=== PATIENT | male | born 1960 | race Caucasian/White ===

== ENCOUNTER 2024-01-17 07:05 | Day surgery (SDC) | payer BC ==
[~2024-01-17] VITALS: Ht 172.7 cm; Wt 102.8 kg
[~2024-01-17 07:05] MED LIST: EFFEXOR-XR150 MG PO; LORTAB 5/500 501 TAB PO; PRAVACHOL10 MG PO
[2024-01-17] MEDS ORDERED: 1/2 NS 1,000 ML IV SCH (07:45)
[2024-01-17] MEDS ORDERED: NS Flush 10 ML SYRINGE PRN ICA (07:45)
[2024-01-17 08:01] LABS: BASO # 0.1 K/mm3 (0.0-0.2); BASO % 0.9 % (0.0-2.0); EOS # 0.2 K/mm3 (0.0-0.7); EOS % 2.6 % (0.0-4.0); GRAN # 3.7 K/mm3 (1.4-6.5); GRAN % 62.2 % (42.2-75.2); HEMOGLOBIN 10.8 g/dl (13.5-18.0); LYMPH # 1.4 K/mm3 (1.2-3.4); LYMPH % 24.4 % (20.0-51.0); MEAN CELL VOLUME 88 fl (80.0-100.0); MEAN CORPUSCULAR HEMOGLOBIN 28 pg (27-31); MEAN CORPUSCULAR HGB CONC 32 g/dl (33.0-37.0); MEAN PLATELET VOLUME 10.4 fl (7.4-10.4); MONO # 0.5 K/mm3 (0.1-0.6); MONO % 8.9 % (1.7-9.3); PLATELET COUNT 144 K/mm3 (130-400); RED BLOOD COUNT 3.84 M/mm3 (4.20-5.60); REDCELL DISTRIBUTION WIDTH-CV 16.3 % (11.5-14.5)
[2024-01-17 08:07] LABS: HEMATOCRIT 33.8 % (42.0-52.0)
[2024-01-17 08:20] LABS: CALCIUM 9.3 mg/dL (8.4-10.2); CREATININE, serum 1.03 mg/dL (0.72-1.25); POTASSIUM 4.8 mEq/L (3.5-4.5)
[2024-01-17 08:22] LABS: INR 1.1 (0.8-3.0); PROTHROMBIN TIME 11.6 SECONDS (9.7-12.8)
[2024-01-17] MEDS ORDERED: COZAAR 25MG25 MG/TAB PO (08:31)
[2024-01-17] MEDS ORDERED: CRESTOR20 MG PO (08:32)
[2024-01-17] MEDS ORDERED: MAG-OX 400400 MG/TAB PO (08:34)
[2024-01-17] MEDS ORDERED: PEPCID 20MG TAB20 MG PO (08:34)
[2024-01-17] MEDS ORDERED: CLARITIN 1010 MG/TAB PO (08:35)
[2024-01-17] MEDS ORDERED: GLUCOPHAGE1000 MG PO (08:36)
[2024-01-17] MEDS ORDERED: METHOTREXATE50/2 IJ (08:38)
[2024-01-17] MEDS ORDERED: WELLBUTRIN XL300 M1 PO (08:39)
[2024-01-17] MEDS ORDERED: JANUVIA 100MG100 MG PO (08:40)
[2024-01-17] MEDS ORDERED: FOLIC ACID 11 MG/TA1 PO (08:41)
[2024-01-17] MEDS ORDERED: ASPIRIN 81M81 MG/TA2 PO (08:42)
[2024-01-17] MEDS ORDERED: MULTI VITAMINS1 TAB PO (08:42)
[2024-01-17 08:44] VITALS: BP 135/62; PULSE 66; TEMP 97.6
[2024-01-17] MEDS ORDERED: NS Flush 10 ML SYRINGE BID ICA SCH (09:00)
[2024-01-17] MEDS ORDERED: Lidocaine PF 2% (20 MG/ML) 5 ML VIAL ONE (09:02)
[2024-01-17 09:35] VITALS: BP 105/56; PULSE 62
[2024-01-17 09:45] VITALS: BP 107/86; PULSE 64
[2024-01-17 10:00] VITALS: BP 118/54; PULSE 60
[2024-01-17 10:15] VITALS: BP 133/61; PULSE 62
--- NOTE | 2024-01-17 10:48 | NUR ---
Discharge instructions given to pt.Pt verbalizes understanding.Pt escorted out via wheelchair by this nurse.
--- NOTE | 2024-01-17 11:00 | NUR ---
Discharge instructions given to pt.Pt verbalizes understanding.Pt escorted out via wheelchair by this nurse.
== END 2024-01-17 14:05 ==
LOC: COL.CAR 07:05
PROVIDERS: Internal Medicine Cardiovascular Disease
DX: I08.1 Rheumatic disorders of both mitral and tricuspid valves (principal)
CPT/HCPCS: J2704

== ENCOUNTER 2024-01-24 10:01 | Day surgery (SDC) | payer BC ==
[2024-01-24] VITALS (12 sets, daily range): BP systolic 121–143; BP diastolic 65–87; PULSE 62–74; TEMP 97.5
[~2024-01-24] VITALS: Ht 172.8 cm; Wt 101.8 kg
[~2024-01-24 10:01] MED LIST changes: +ASPIRIN 81M81 MG/TA2 PO; +CLARITIN 1010 MG/TAB PO; +COZAAR 25MG25 MG/TAB PO; +CRESTOR20 MG PO; +FOLIC ACID 11 MG/TA1 PO; +GLUCOPHAGE1000 MG PO; +JANUVIA 100MG100 MG PO; +MAG-OX 400400 MG/TAB PO; +METHOTREXATE50/2 IJ; +MULTI VITAMINS1 TAB PO; +PEPCID 20MG TAB20 MG PO; +WELLBUTRIN XL300 M1 PO
[2024-01-24] MEDS ORDERED: 1/2 NS 1,000 ML IV SCH (10:30)
[2024-01-24 10:48] LABS: HEMOGLOBIN 11.3 g/dl (13.5-18.0); MEAN CELL VOLUME 88 fl (80.0-100.0); MEAN CORPUSCULAR HEMOGLOBIN 28 pg (27-31); MEAN CORPUSCULAR HGB CONC 32 g/dl (33.0-37.0); MEAN PLATELET VOLUME 10.8 fl (7.4-10.4); PLATELET COUNT 173 K/mm3 (130-400); RED BLOOD COUNT 3.98 M/mm3 (4.20-5.60); REDCELL DISTRIBUTION WIDTH-CV 16.2 % (11.5-14.5)
[2024-01-24 10:51] LABS: HEMATOCRIT 35.1 % (42.0-52.0)
[2024-01-24 10:52] LABS: INR 1.1 (0.8-3.0); PROTHROMBIN TIME 11.5 SECONDS (9.7-12.8)
[2024-01-24 10:55] LABS: PARTIAL THROMBOPLASTIN TIME 31.7 SECONDS (26.0-37.0)
[2024-01-24 11:05] LABS: CALCIUM 9.1 mg/dL (8.4-10.2); POTASSIUM 4.8 mEq/L (3.5-4.5)
[2024-01-24] MEDS ORDERED: Verapamil 2.5 MG/ML 2 ML VIAL IA SCH (12:51)
[2024-01-24] MEDS ORDERED: Nitroglycerin 100 MCG/ML (Cath Lab) 10 ML VIAL IA SCH (12:53)
[2024-01-24] MEDS ORDERED: Heparin 1,000 UNITS/ML 10 ML Multi-Dose VIAL IV SCH (12:53)
--- NOTE | 2024-01-24 13:02 | NUR ---
See Merge report for procedural sedation/notes
[2024-01-24] MEDS ORDERED: Midazolam 2 MG/2 ML VIAL IV SCH (13:08)
[2024-01-24] MEDS ORDERED: fentaNYL 50 MCG/ML 2 ML VIAL IV SCH (13:11)
[2024-01-24] MEDS ORDERED: Iohexol 350 - 100 ML VIAL INCOR ONE (13:19)
--- NOTE | 2024-01-24 16:41 | NUR ---
Pt ambulated with a steady gait to EU12 scheduled for a [facility]. EKG done. IV started, labs drawn. Consent for the procedure signed. Post procedure the pt came back to EU12. Right radial site assessed, clean, dry, and intact. Pt was offered something to eat and drink, accepted a water and a meal was ordered. Pt was bedrest for 2hrs. At the end of the 2 hrs bedrest air was taken out the radial band, 2 mls about every 15 mins. The radial site remained clean, dry and intact throughout the air release process. Once all the air was released a band-aid was placed over the radial site and the deflated band was reapplied. The pt requested the arm board be reapplied as an extra reminder to limit extremity use. IV dc'd and site was wrapped with coban. Discharge education and information discussed with the pt. No questions at this time. Pt exited the unit by wheelchair accompanied by the nurse to wifes car.
== END 2024-01-24 16:29 | disposition home or self-care (01) ==
LOC: COL.CAR 10:01
PROVIDERS: Internal Medicine Cardiovascular Disease
DX: R07.9 Chest pain, unspecified (principal)
CPT/HCPCS: J1644; J2250; J3010; Q9967